=== PATIENT | male | born 1945 | race Two or more races ===

== ENCOUNTER 2019-08-08 11:28 | Outpatient (CLI) | payer MEDICARE, OTHER ==
[2019-08-21] MEDS ORDERED: FERR325T23 PO (08:45)
[2019-08-21] MEDS ORDERED: CALC500T63 PO (08:45)
[2019-08-21] MEDS ORDERED: SEVE0.8P GT (08:45)
[2019-08-21] MEDS ORDERED: CLOT15CR35 TP (08:45)
[2019-08-21] MEDS ORDERED: DAPT500V2 IV (08:51)
== END 2019-08-08 23:59 | disposition home health service (06) ==
LOC: WOU 11:28
PROVIDERS: ATTEND Podiatrist Foot & Ankle Surgery
DX: E11.621 Type 2 diabetes mellitus with foot ulcer (principal); L97.412 Non-pressure chronic ulcer of right heel and midfoot with fat layer exposed; L97.526 Non-pressure chronic ulcer of other part of left foot with bone involvement without evidence of necrosis; E11.69 Type 2 diabetes mellitus with other specified complication; M86.672 Other chronic osteomyelitis, left ankle and foot; Z79.84 Long term (current) use of oral hypoglycemic drugs; Z89.432 Acquired absence of left foot; Z87.891 Personal history of nicotine dependence
CPT/HCPCS: 11042; 11044; 82962; 87070; A6407

== ENCOUNTER 2019-08-15 08:50 | Outpatient (CLI) | payer MEDICARE, OTHER | END 2019-08-15 23:59 | disposition home health service (06) | LOC: WOU 08:50 | PROVIDERS: ATTEND Podiatrist Foot & Ankle Surgery | DX: E11.621 Type 2 diabetes mellitus with foot ulcer (principal); L97.526 Non-pressure chronic ulcer of other part of left foot with bone involvement without evidence of necrosis; L97.412 Non-pressure chronic ulcer of right heel and midfoot with fat layer exposed; E11.69 Type 2 diabetes mellitus with other specified complication; M86.672 Other chronic osteomyelitis, left ankle and foot; Z79.84 Long term (current) use of oral hypoglycemic drugs; B95.62 Methicillin resistant Staphylococcus aureus infection as the cause of diseases classified elsewhere; Z89.432 Acquired absence of left foot; Z89.431 Acquired absence of right foot | CPT/HCPCS: 11042; 28005; 87070; 87075; 88305; 88311; A6209 ==

== ENCOUNTER 2019-08-17 17:52 | Inpatient (IN) | payer MEDICARE, OTHER ==
[~2019-08-17] VITALS: Ht 170.2 cm; Wt 65.8 kg
--- NOTE | 2019-08-17 17:55 | NUR ---
BIB DAUGHTER C/O L FOOT INFECTION FOR 2 WEEKS, TO ER BED 10, NOTED W ITH L AND R COMPLETE TOE AMPUTATION, PER PATIENT, HE WAS SENT BY DR NEFF FOR IV ANTIBIOTIC TO PREVENT INFECTION OF L FOOT. NOTED W LUE FISTULA. CHANGED TO HOSP GOWN, WARM BLANKET PROVIDED, PATIENT AAO x 4, BREATHING EVEN AND UNLABORED. DR JIMENEZ AT BEDSIDE.
--- NOTE | 2019-08-17 18:00 | NUR ---
PATIENT ON DIALYSIS EVERY Wed, LAST DIALYSIS 08/16/2019
[2019-08-17 18:23] LABS: BASOPHILS # (AUTO) 0.1 /CMM (0.0-0.2); BASOPHILS % (AUTO) 0.8 % (0.0-2.0); HEMATOCRIT 27 % (39-51); HEMOGLOBIN 8.3 g/dL (13.5-17.5); LYMPHOCYTES # (AUTO) 2.1 /CMM (0.8-4.8); LYMPHOCYTES % (AUTO) 27.5 % (20.0-44.0); MEAN CORPUSCULAR HGB CONC 31 g/dl (31.0-36.0); MEAN CORPUSCULAR VOLUME 87 fL (80-96); MONOCYTES # (AUTO) 1.1 /CMM (0.1-1.30); MONOCYTES % (AUTO) 14.3 % (2.0-12.0); NEUTROPHILS # (AUTO) 4.2 /CMM (1.8-8.9); NEUTROPHILS % (AUTO) 53.4 % (43.0-81.0); PLATELET COUNT (AUTO) 297 /CMM (150-450); RED BLOOD CELL COUNT(AUTO) 3.07 MIL/uL (4.5-6.0); WHITE BLOOD COUNT (AUTO) 7.8 K/uL (4.3-11.0)
[2019-08-17] MEDS ORDERED: CEFTRIAXONE 1GM BAG (ER ONLY) 50 ML IV ONE (18:27)
[2019-08-17] MEDS ORDERED: SULFAMETH/TRIMETH 800/160 MG 1 UDTAB TABLET ONE (18:28)
[2019-08-17] MEDS ORDERED: CEFTRIAXONE 1GM BAG (ER ONLY) 1 GM/50 ML PIGGYBACK IV ONE (18:30)
[2019-08-17] MEDS ORDERED: SULFAMETH/TRIMETH 800/160 MG 1 UDTAB TABLET PO ONE (18:30)
[2019-08-17] MEDS ORDERED: IV NS 0.9% 500 ML BAG IV ONE (18:30)
[2019-08-17] MEDS ORDERED: ASPI-1169 PO (18:31)
[2019-08-17] MEDS ORDERED: LOSA25TA27 PO (18:31)
[2019-08-17] MEDS ORDERED: ATOR40TA PO (18:31)
--- NOTE | 2019-08-17 18:32 | NUR ---
SHEAR OPERATOR HELPER AT BEDSIDE
[2019-08-17 18:37] LABS: ALANINE AMINOTRANSFERASE 50 U/L (12-78); ALBUMIN 2.6 g/dL (3.4-5.0); ALKALINE PHOSPHATASE 101 U/L (46-116); ASPARTATE AMINOTRANSFERASE 49 U/L (15-37); BILIRUBIN,DIRECT 0.1 mg/dL (0.0-0.2); BILIRUBIN,TOTAL 0.3 mg/dL (0.2-1.0); CALCIUM, SERUM 8.3 mg/dL (8.5-10.1); CARBON DIOXIDE 31 mmol/L (21-32); GLUCOSE 128 mg/dL (74-106); TOTAL PROTEIN, SERUM 7.5 g/dL (6.4-8.2); UREA NITROGEN, BLOOD 73 mg/dL (7-18)
[2019-08-17] MEDS ORDERED: LINA5TAB PO (18:43)
[2019-08-17 18:54] LABS: CHLORIDE 98 mmol/L (98-107); SODIUM SERUM 135 mmol/L (136-145)
--- NOTE | 2019-08-17 19:12 | NUR ---
REPORT GIVEN TO SHAHRIAR COLBERT FOR AIXA
--- NOTE | 2019-08-17 19:29 | NUR ---
REPORT RECEIVED FROM FILEMON DIANA FOR AIXA
--- NOTE | 2019-08-17 19:36 | NUR ---
PT REASSESSED. NO MEDICAL COMPLAINTS AT THIS TIME. NO ACUTE DISTRESS NOTED. WILL CONTINUE TO MONITOR
[2019-08-17] MEDS ORDERED: Z GUARD REMEDY 2 OZ OINT TP PRN (20:00)
[2019-08-17] MEDS ORDERED: MAG HYDROX/AL HYDROX/SIMETH 30 ML UDC PO PRN (20:00)
[2019-08-17] MEDS ORDERED: ZOLPIDEM TARTRATE 5 MG TABLET PO PRN (20:00)
[2019-08-17] MEDS ORDERED: MAGNESIUM HYDROXIDE 30 ML UDC PO PRN (20:00)
[2019-08-17] MEDS ORDERED: HYDROCODONE/APAP 5/325MG 1 EACH TABLET PO PRN (20:00)
[2019-08-17] MEDS ORDERED: ACETAMINOPHEN 325 MG TABLET PO PRN (20:00)
[2019-08-17] MEDS ORDERED: CLINDAMYCIN IV RTU IN D5W 900 MG/50 ML PIGGYBACK IV SCH (20:00)
[2019-08-17] MEDS ORDERED: ONDANSETRON HCL/PF 4 MG/2 ML VIAL IVP PRN (20:00)
[2019-08-17 21:00] VITALS: BP 138/66
[2019-08-17] MEDS ORDERED: CLINDAMYCIN 900 MG in IV D5W 50 ML IV SCH (21:00)
--- NOTE | 2019-08-17 21:00 | NUR ---
REPORT GIVEN TO FILEMON POWERS
--- NOTE | 2019-08-17 21:02 | NUR ---
PT TRANSFERRED TO ROOM IN STABLE CONDITION
--- NOTE | 2019-08-17 21:05 | NUR ---
MS MOLDED GOODS EMBOSSING PRESS OPERATOR NOTES PATIENT TRANSFERRED FROM ER IN STABLE CONDITION VIA GURNEY. A/OX4. STABLE ON RA. NO S/S OF ACUTE RESPIRATORY DISTRESS; BREATHING IS EVEN AND UNLABORED. NO C/O PAIN AT THIS TIME. IV PRESENT ON RIGHT HAND, SIZE 18, INTACT & PATENT, HEP LOCKED. UPON SKIN ASSESSMENT, PATIENT HAS COMPLETE TOE AMPUTATIONS ON BOTH FEET; ULCER/CELLULITIS PRESENT ON RIGHT HEEL; PICTURES TAKEN AND PLACE IN CHART; WOUND CONSULT ORDERS IN PLACE. BELONGINGS VERIFIED WITH PATIENT; HAS ONE HUNDRED DOLLARS (ONE BILL) IN [place], ASKED PATIENT IF HE WOULD LIKE TO KEEP WALLET AND MONEY IN SAFE FOR PRECAUTION; PATIENT DECLINED AND STATED THAT HE WOULD LIKE TO KEEP WALLET BY HIS BEDSIDE; NOTED ON BELONGINGS LIST. MRSA SWAB AND MED RECON COMPLETED IN ER. ADMITTING ORDERS RECEIVED BY GLOBAL PROCESS OWNER CHARMAINE TIPTON. SAFETY MEASURES IN PLACE AND PATIENT'S NEEDS MET. WILL CONTINUE TO MONITOR.
--- NOTE | 2019-08-17 21:45 | NUR ---
MS RN NOTES SCHEDULED IVPB CLINDAMYCIN 900MG NOT STOCKED ON FLOOR; NURSING HATCHERY SUPERVISOR FAXED MED ORDER TO RETRIEVE FROM [facility]. AWAITING MEDICATION.
[2019-08-17 22:52] LABS: POTASSIUM 6.6 mmol/L (3.5-5.1)
[2019-08-17] MEDS ORDERED: CLINDAMYCIN 900 MG/6 ML VIAL ONE (22:56)
--- NOTE | 2019-08-18 00:10 | NUR ---
MS RN CRITICAL VALUE NOTES RECEIVED CRITICAL VALUE FROM LAB; POTASSIUM 6.5. NOTIFIED POWER HAMMER OPERATOR CHARMAINE TIPTON, VIA [employer]. PER CHARMAINE, NO NEW ORDERS; PATIENT TO RECEIVE DIALYSIS LATER TODAY TO RESOLVE POTASSIUM LEVELS.
[2019-08-18] MEDS: CALCIUM CARBONATE 500 MG TAB.CHEW PO SCH ×3 (00:11→21:12)
[2019-08-18 06:33] LABS: BASOPHILS % (AUTO) 0.4 % (0.0-2.0); EOSINOPHILS % (AUTO) 3.5 % (0.0-6.0); HEMATOCRIT 24 % (39-51); HEMOGLOBIN 7.8 g/dL (13.5-17.5); LYMPHOCYTES # (AUTO) 2.3 /CMM (0.8-4.8); LYMPHOCYTES % (AUTO) 30.4 % (20.0-44.0); MEAN CORPUSCULAR HGB CONC 32 g/dl (31.0-36.0); MEAN CORPUSCULAR VOLUME 85 fL (80-96); MONOCYTES # (AUTO) 1.1 /CMM (0.1-1.30); MONOCYTES % (AUTO) 14.2 % (2.0-12.0); NEUTROPHILS # (AUTO) 3.8 /CMM (1.8-8.9); NEUTROPHILS % (AUTO) 51.5 % (43.0-81.0); PLATELET COUNT (AUTO) 304 /CMM (150-450); RED BLOOD CELL COUNT(AUTO) 2.85 MIL/uL (4.5-6.0); WHITE BLOOD COUNT (AUTO) 7.4 K/uL (4.3-11.0)
--- NOTE | 2019-08-18 07:04 | NUR ---
MS RN CLOSING NOTES PATIENT SLEEPING IN BED, EASY TO AWAKEN. A/OX4. STABLE ON RA. NO S/S OF ACUTE RESPIRATORY DISTRESS; BREATHING IS EVEN AND UNLABORED; NO S/S OF PAIN NOTED. IV PRESENT ON RIGHT HAND, SIZE 18, INTACT & PATENT, HEP LOCKED. SAFETY MEASURES IN PLACE AND PATIENT'S NEEDS MET. BED LOCKED, ALARM ON, SIDE RAILS X2, CALL LIGHT WITHIN REACH. WILL ENDORSE TO DAY SHIFT NURSE PLAN OF CARE.
[2019-08-18 07:13] LABS: CHOLESTEROL 130 mg/dL (<200); HDL CHOLESTEROL 41 mg/dL (40-60); LDL 77 mg/dL (0-99); TRIGLYCERIDES 102 mg/dL (30-150)
[2019-08-18 07:14] LABS: CALCIUM, SERUM 7.9 mg/dL (8.5-10.1); CARBON DIOXIDE 26 mmol/L (21-32); CHLORIDE 96 mmol/L (98-107); GLUCOSE 82 mg/dL (74-106); MAGNESIUM 2.7 mg/dL (1.8-2.4); PHOSPHORUS 6.1 mg/dL (2.5-4.9); SODIUM SERUM 133 mmol/L (136-145)
[2019-08-18 07:21] LABS: POTASSIUM 6.5 mmol/L (3.5-5.1); UREA NITROGEN, BLOOD 82 mg/dL (7-18)
[2019-08-18 07:22] LABS: CREATININE 7.8 mg/dL (0.6-1.3)
--- NOTE | 2019-08-18 07:30 | NUR ---
MS RN NOTES RECEIVED PATIENT SLEEPING IN BED COMFORTABLY IN MODERATE HIGH BACK REST, EASY TO AWAKEN. A/OX4. STABLE ON RA. NO S/S OF ACUTE DISTRESS NOTED AT THIS TIME, IV ACCESS ON RIGHT HAND, #18, INTACT & PATENT, HEP LOCKED. SAFETY MEASURES IN PLACE. BED LOCKED IN LOWEST POSITION, ALARM ON, SIDE RAILS X2, CALL LIGHT WITHIN REACH. WILL CONTINUE TO MONITOR.
[2019-08-18] MEDS: CLINDAMYCIN 900 MG in IV D5W 50 ML IV SCH ×2 (07:33→13:25)
[2019-08-18 08:00] VITALS: BP 139/74
[2019-08-18] MEDS: ASPIRIN 81 MG TAB.CHEW PO SCH (08:38)
[2019-08-18] MEDS: LINAGLIPTIN 5 MG TABLET PO SCH (08:38)
[2019-08-18] MEDS: LOSARTAN POTASSIUM 25 MG TABLET PO SCH (08:39)
[2019-08-18] MEDS: CLOTRIMAZOLE 1% 15 GM TUBE TP SCH ×2 (09:58→17:18)
[2019-08-18] MEDS: PANTOPRAZOLE 40 MG TABLET.DR PO SCH (10:00)
--- NOTE | 2019-08-18 10:00 | NUR ---
RN NOTES DIALYSIS NURSE ON UNIT, NO SIGNS OF DISTRESS NOTED AT THIS TIME. CONSENT FOR HD SIGNED. WILL CONTINUE TO MONITOR.
--- NOTE | 2019-08-18 10:12 | NUR ---
WOUND CARE CONSULT WOUND CARE RECEIVED CONSULT FOR RIGHT HEEL ULCER/CELLULITIS. WOUND CARE WILL DEFER CONSULT AND TREATMENT PLANS TO DPM DR BRODY WHO FOLLOWS THIS PATIENT IN THE OUT PATIENT WOUND CLINIC. DR BRODY HAS BEEN NOTIFIED OF PATIENT'S ADMISSION. PATIENT WITH TRACIE AT 20, WOUND CARE WILL SEE PRN.
--- NOTE | 2019-08-18 13:00 | NUR ---
RN NOTES DIALYSIS WAS DONE, V/S WNL, NO SIGNS OF DISTRESS NOTED. OUTPUT OF 2L, WILL CONTINUE TO MONITOR.
[2019-08-18] MEDS: SEVELAMER CARBONATE 0.8 GM POWD.PACK GT SCH ×2 (13:25→17:17)
[2019-08-18 16:00] VITALS: BP 137/66
[2019-08-18] MEDS: ATORVASTATIN 40 MG TABLET PO SCH (17:17)
--- NOTE | 2019-08-18 18:51 | NUR ---
MS RN NOTES PATIENT SLEEPING IN BED COMFORTABLY IN MODERATE HIGH BACK REST, EASY TO AWAKEN. A/OX4. STABLE ON RA. NO S/S OF ACUTE DISTRESS NOTED THROUGHOUT THE SHIFT, S/P HD WITH OUTPUT OF 2L, IV ACCESS ON RIGHT HAND, #18, INTACT & PATENT, HEP LOCKED. SAFETY MEASURES IN PLACE. BED LOCKED IN LOWEST POSITION, ALARM ON, SIDE RAILS X2, CALL LIGHT WITHIN REACH. WILL ENDORSE TO UNDERCOVER COP NURSE FOR AIXA.
--- NOTE | 2019-08-18 19:10 | NUR ---
marine engineering consultant opening notes Received Pt from morning nurse. Pt is alert and orientedX4. Pt speaks Nigerien and able to make needs known. Respiration is normal in room air. No SOB. No S/S of distress noted. IV sites R hand #18 is clean, intact, patent and SL. Tele monitor showed SR Hr at 88 bpm. Safety precautions is maintained. Bed at low position, brakes locked, side rails upX2 and call light is within reach. Will continue to monitor.
[2019-08-18 20:00] VITALS: BP 135/67
[2019-08-18 20:17] VITALS: BP 135/67
[2019-08-18] MEDS: LINEZOLID 600 MG TABLET PO SCH (21:17)
[2019-08-19] VITALS (7 sets, daily range): BP systolic 107–153; BP diastolic 56–70
[2019-08-19 06:38] LABS: BASOPHILS % (AUTO) 0.7 % (0.0-2.0); EOSINOPHILS % (AUTO) 4.1 % (0.0-6.0); HEMATOCRIT 25 % (39-51); LYMPHOCYTES # (AUTO) 1.8 /CMM (0.8-4.8); LYMPHOCYTES % (AUTO) 27.6 % (20.0-44.0); MEAN CORPUSCULAR HGB CONC 32 g/dl (31.0-36.0); MEAN CORPUSCULAR VOLUME 85 fL (80-96); MONOCYTES % (AUTO) 15.4 % (2.0-12.0); NEUTROPHILS # (AUTO) 3.5 /CMM (1.8-8.9); NEUTROPHILS % (AUTO) 52.2 % (43.0-81.0); PLATELET COUNT (AUTO) 277 /CMM (150-450); RED BLOOD CELL COUNT(AUTO) 2.92 MIL/uL (4.5-6.0); WHITE BLOOD COUNT (AUTO) 6.7 K/uL (4.3-11.0)
--- NOTE | 2019-08-19 06:56 | NUR ---
machine sand mixer closing notes Pt is resting in bed comfortably. Pt is alert and orientedX4. Pt speaks Kiswahili and able to make needs known. Respiration is normal in room air. No SOB. No S/S of distress noted. IV sites R hand #18 is clean, intact, patent and SL. Tele monitor showed SR Hr at 80 bpm. Routine meds were given as ordered. VS is stable. Kept Pt clean, dry and comfortable. All needs met and attended. Safety precautions is maintained. Bed at low position, brakes locked, side rails upX2 and call light is within reach. Will endorse to morning nurse for AIXA.
[2019-08-19 06:58] LABS: CREATINE KINASE, TOTAL 40 U/L (39-308); FERRITIN 156 ng/mL (8-388); THYROID STIMULATING HORMONE 2.057 uIU/mL (0.358-3.74)
[2019-08-19 07:06] LABS: IRON, SERUM 17 ug/dl (50-175); TOTAL IRON BINDING CAPACITY 164 ug/dl (250-450)
--- NOTE | 2019-08-19 07:47 | NUR ---
RN NOTES PATIENT IN BED RESTING. NO SOB OR ACUTE DISTRESS NOTED. PATIENT ALERT, ORIENTED X4. BED IN LOW LOCKED POSITION. CALL LIGHT WITHIN REACH. WILL CONTINUE TO MONITOR.
[2019-08-19] MEDS: SEVELAMER CARBONATE 0.8 GM POWD.PACK GT SCH ×3 (08:39→17:23)
[2019-08-19] MEDS: LINEZOLID 600 MG TABLET PO SCH ×2 (08:39→20:11)
[2019-08-19] MEDS: PANTOPRAZOLE 40 MG TABLET.DR PO SCH (08:39)
[2019-08-19] MEDS: CALCIUM CARBONATE 500 MG TAB.CHEW PO SCH ×2 (08:39→20:11)
[2019-08-19] MEDS: LINAGLIPTIN 5 MG TABLET PO SCH (08:39)
[2019-08-19] MEDS: ASPIRIN 81 MG TAB.CHEW PO SCH (08:39)
[2019-08-19] MEDS: LOSARTAN POTASSIUM 25 MG TABLET PO SCH (08:46)
[2019-08-19] MEDS: CLOTRIMAZOLE 1% 15 GM TUBE TP SCH ×2 (08:49→17:20)
--- NOTE | 2019-08-19 09:00 | NUR ---
RN NOTES RECIVED CALL FROM LAB REPORTING POTASSIUM OF 6.6, DR. CHEPE Medina NOTIFIED STATES WILL PLACE ORDERS FOR KAYXALATE.
[2019-08-19 09:43] LABS: ALANINE AMINOTRANSFERASE 28 U/L (12-78); ALBUMIN 2.4 g/dL (3.4-5.0); ALKALINE PHOSPHATASE 73 U/L (46-116); ASPARTATE AMINOTRANSFERASE 23 U/L (15-37); BILIRUBIN,TOTAL 0.3 mg/dL (0.2-1.0); CALCIUM, SERUM 8.4 mg/dL (8.5-10.1); CARBON DIOXIDE 31 mmol/L (21-32); CHLORIDE 95 mmol/L (98-107); CREATININE 7.2 mg/dL (0.6-1.3); GLUCOSE 144 mg/dL (74-106); MAGNESIUM 2.5 mg/dL (1.8-2.4); PHOSPHORUS 6.7 mg/dL (2.5-4.9); SODIUM SERUM 133 mmol/L (136-145); TOTAL PROTEIN, SERUM 7.2 g/dL (6.4-8.2); UREA NITROGEN, BLOOD 65 mg/dL (7-18)
[2019-08-19 09:46] LABS: POTASSIUM 6.6 mmol/L (3.5-5.1)
[2019-08-19] MEDS ORDERED: Calcium Gluconate 1GM/10ML 4.65 MEQ in IV NS 0.9% 100 ML IV ONE (11:00)
[2019-08-19] MEDS: SODIUM POLYSTYRENE SULFONATE 15 G/60 ML BOTTLE PO ONE ×2 (11:35→13:19)
--- NOTE | 2019-08-19 12:00 | NUR ---
MS RN NOTES PATIENT REFUSED SODIUM POLYTYRENT DESPITE EXPLANATION OF ITS BENEFITS AND RISKS OF NOT TAKING MEDICATION. WILL TRY TO OFFER MEDICATION LATER.
--- NOTE | 2019-08-19 13:19 | NUR ---
RN NOTES PATIENT AGREED TO TAKE KAYEXALATE.
[2019-08-19] MEDS: SOD FERRIC GLUC 125 MG in IV NS 0.9% 100 ML IV SCH (16:49)
[2019-08-19] MEDS: ATORVASTATIN 40 MG TABLET PO SCH (17:23)
--- NOTE | 2019-08-19 18:35 | NUR ---
MS RN NOTES PATIENT IN BED RESTING NO SOB OR ACUTE DISTRESS NOTED. ALL DUE MEDICATIONS ADMINISTERED. ALL NEEDS MET. PATIENT TOLERATED HD WITH 1500 OUTPUT. NO ACUTE CHANGES NOTED. WILL CONTINUE TO MONITOR.
--- NOTE | 2019-08-19 19:25 | NUR ---
MS RN NOTES PATIENT RECEIVED IN BED RESTING COMFORTABLY, ALERT AND ORIENTED X 4, MAINLY [place] SPEAKING. PATIENT ON ROOM AIR, WITH NO SIGNS OF RESPIRATORY DISTRESS, NO SOB NOTED AND WITH EVEN NON-LABORED BREATHING. IV ACCESS INTACT AND PATENT ON RIGHT HAND, 18 GAUGE SALINE LOCK. PATIENT SKIN WARM AND DRY TO TOUCH. DENIES ANY PAIN OR DISCOMFORT AT THIS TIME. SAFETY PRECAUTIONS IN PLACE WITH BED IN THE LOWEST POSITION, BED LOCKED, BILATERAL SIDE RAILS UP, AND CALL LIGHT WITHIN EASY REACH OF THE PATIENT. WILL CONTINUE TO MONITOR PATIENT.
[2019-08-20 06:24] LABS: BASOPHILS # (AUTO) 0.1 /CMM (0.0-0.2); EOSINOPHILS % (AUTO) 4.2 % (0.0-6.0); HEMATOCRIT 23 % (39-51); HEMOGLOBIN 7.4 g/dL (13.5-17.5); LYMPHOCYTES # (AUTO) 1.7 /CMM (0.8-4.8); LYMPHOCYTES % (AUTO) 30.6 % (20.0-44.0); MEAN CORPUSCULAR HGB CONC 32 g/dl (31.0-36.0); MEAN CORPUSCULAR VOLUME 85 fL (80-96); MONOCYTES # (AUTO) 0.9 /CMM (0.1-1.30); MONOCYTES % (AUTO) 16.3 % (2.0-12.0); NEUTROPHILS # (AUTO) 2.7 /CMM (1.8-8.9); NEUTROPHILS % (AUTO) 47.9 % (43.0-81.0); PLATELET COUNT (AUTO) 223 /CMM (150-450); RED BLOOD CELL COUNT(AUTO) 2.71 MIL/uL (4.5-6.0); WHITE BLOOD COUNT (AUTO) 5.6 K/uL (4.3-11.0)
[2019-08-20 06:44] LABS: ALANINE AMINOTRANSFERASE 21 U/L (12-78); ALBUMIN 2.3 g/dL (3.4-5.0); ALKALINE PHOSPHATASE 70 U/L (46-116); ASPARTATE AMINOTRANSFERASE 22 U/L (15-37); BILIRUBIN,TOTAL 0.2 mg/dL (0.2-1.0); CARBON DIOXIDE 32 mmol/L (21-32); CHLORIDE 98 mmol/L (98-107); GLUCOSE 87 mg/dL (74-106); MAGNESIUM 2.4 mg/dL (1.8-2.4); PHOSPHORUS 7.6 mg/dL (2.5-4.9); POTASSIUM 6.1 mmol/L (3.5-5.1); SODIUM SERUM 136 mmol/L (136-145); TOTAL PROTEIN, SERUM 6.7 g/dL (6.4-8.2); UREA NITROGEN, BLOOD 52 mg/dL (7-18)
--- NOTE | 2019-08-20 06:47 | NUR ---
MS RN NOTES PATIENT IN BED RESTING COMFORTABLY. NO SIGNS OF RESPIRATORY DISTRESS, WITH EVEN NON-LABORED BREATHING AND NO SOB NOTED. IV ACCESS INTACT AND PATENT ON RIGHT HAND 18 GAUGE. MET ALL OF PATIENT'S NEEDS. PROVIDED COMFORT MEASURES TO PATIENT, NO PAIN OR DISCOMFORT AT THIS TIME. SAFETY PRECAUTIONS IMPLEMENTED WITH BED IN THE LOWEST POSITION, BED LOCKED, BILATERAL SIDE RAILS UP AND CALL LIGHT WITHIN EASY REACH OF PATIENT. WILL ENDORSE PLAN OF CARE TO UPCOMING DAYSHIFT NURSE.
[2019-08-20 08:00] VITALS: BP 143/69
--- NOTE | 2019-08-20 08:00 | NUR ---
RN NOTES RECEIVED PATIENT IN THE BED , A/O X3, SOUTH KOREAN SPEAKER, PATIENT HAS NO ACUTE RESPIRATORY DISTRESS, REFUSED PAIN, PATIENT USING CANE FOR AMBULATION, SAFETY PRECAUTION MAINTAINED ALL THE G[place]ALO E. PATIENT HAS AMPUTATED BILATERAL FOOTS, DRESSING CHANGED. ADMINISTERED SCHEDULED MEDICATION.V/S STABLE. IV ACCESS ON RIGHT HAND INTACT.
[2019-08-20] MEDS: CALCIUM CARBONATE 500 MG TAB.CHEW PO SCH ×2 (08:49→20:32)
[2019-08-20] MEDS: LINEZOLID 600 MG TABLET PO SCH ×2 (08:49→20:32)
[2019-08-20] MEDS: LOSARTAN POTASSIUM 25 MG TABLET PO SCH (08:49)
[2019-08-20] MEDS: LINAGLIPTIN 5 MG TABLET PO SCH (08:50)
[2019-08-20] MEDS: SEVELAMER CARBONATE 0.8 GM POWD.PACK GT SCH ×3 (08:50→17:48)
[2019-08-20] MEDS: ASPIRIN 81 MG TAB.CHEW PO SCH (08:50)
[2019-08-20] MEDS: PANTOPRAZOLE 40 MG TABLET.DR PO SCH (08:50)
[2019-08-20] MEDS: CLOTRIMAZOLE 1% 15 GM TUBE TP SCH ×2 (08:51→16:48)
--- NOTE | 2019-08-20 10:00 | NUR ---
N NOTES SEEN PATIENT BY HOSPITALIST SHOAIB DIRECTOR OF PARTNER MARKETING , PATIENT WILL CONTINUED HOSPITALIZATION, TAKE MEDICATION PRESCRIBED.
--- NOTE | 2019-08-20 14:04 | NUR ---
RN NOTES PER FRUIT SHIPPER Dr PALM PATIENT WILL HAVING A HEMODIALYSIS TODAY, BECAUSE OF LAB RESULT.
[2019-08-20] MEDS: SOD FERRIC GLUC 125 MG in IV NS 0.9% 100 ML IV SCH (14:15)
--- NOTE | 2019-08-20 14:39 | NUR ---
RN NOTES INFUSING FERRLECIT 100ML/HR AT THIS TIME ON RIGHT HAND INTACT.
[2019-08-20 16:00] VITALS: BP 154/75
--- NOTE | 2019-08-20 16:32 | NUR ---
RN NOTES PATIENT GETTING HEMODIALYSIS AT THIS TIME VIA CITY ENGINEER. CONTINUED MONITORING, V/S TAKEN BP- 154/75,P-81 . PATIENT REFUSED PAIN, NO ACUTE RESPIRATORY DISTRESS.
[2019-08-20] MEDS: ATORVASTATIN 40 MG TABLET PO SCH (17:49)
--- NOTE | 2019-08-20 18:20 | NUR ---
RN NOTES FINISHED HEMODIALYSIS AT THIS TIME OUTPUT WAS 1000ML, V/S TAKEN BP 164/74, P76, T-98, R-20, 02-96 ROOM AIR. PATIENT EATING DINNER, ADMINISTERED SCHEDULED MEDICATION, ALSO PER Md ORTEGA GET TO ORDER BMP AFTER 30 MINUTES HEMODIALYSIS. ORDER TAKEN AND CARRIED OUT. CALL LIGHT WITHIN TO REACH. ENDORSED ONCOMING NURSE FOLLOW PLAN OF CARE.
--- NOTE | 2019-08-20 19:30 | NUR ---
MS RN NOTES PATIENT RECEIVED IN BED RESTING, ALERT AND ORIENTED X 4. ON ROOM AIR, WITH NO SIGNS OF RESPIRATORY DISTRESS, WITH EVEN NON-LABORED BREATHING, AND NO SOB NOTED. PATIENT IV ACCESS INTACT AND PATENT. SKIN WARM AND DRY TO TOUCH. DENIES PAIN AND DISCOMFORT AT THIS TIME. SAFETY PRECAUTIONS IN PLACE WITH BED LOCKED, BED IN THE LOWEST POSITION, BILATERAL SIDE RAILS UP, AND CALL LIGHT WITHIN EASY REACH OF THE PATIENT. WILL CONTINUE TO MONITOR PATIENT.
[2019-08-20 20:00] VITALS: BP 150/68
[2019-08-20 20:46] LABS: CALCIUM, SERUM 7.9 mg/dL (8.5-10.1); CARBON DIOXIDE 34 mmol/L (21-32); CHLORIDE 99 mmol/L (98-107); CREATININE 4.6 mg/dL (0.6-1.3); GLUCOSE 113 mg/dL (74-106); SODIUM SERUM 137 mmol/L (136-145); UREA NITROGEN, BLOOD 35 mg/dL (7-18)
[2019-08-21 06:36] LABS: BASOPHILS % (AUTO) 0.9 % (0.0-2.0); EOSINOPHILS % (AUTO) 5.1 % (0.0-6.0); HEMATOCRIT 24 % (39-51); HEMOGLOBIN 7.6 g/dL (13.5-17.5); LYMPHOCYTES # (AUTO) 1.9 /CMM (0.8-4.8); LYMPHOCYTES % (AUTO) 38.9 % (20.0-44.0); MEAN CORPUSCULAR HGB CONC 32 g/dl (31.0-36.0); MEAN CORPUSCULAR VOLUME 86 fL (80-96); NEUTROPHILS # (AUTO) 1.7 /CMM (1.8-8.9); NEUTROPHILS % (AUTO) 35.1 % (43.0-81.0); PLATELET COUNT (AUTO) 186 /CMM (150-450); RED BLOOD CELL COUNT(AUTO) 2.78 MIL/uL (4.5-6.0); WHITE BLOOD COUNT (AUTO) 4.8 K/uL (4.3-11.0)
--- NOTE | 2019-08-21 06:38 | NUR ---
MS RN NOTES PATIENT IN BED SLEEPING EASILY AWAKEN BY NAME. NO SIGNS OF RESPIRATORY DISTRESS, WITH EVEN NON-LABORED BREATHING AND NO SOB NOTED. IV ACCESS INTACT AND PATENT ON RIGHT HAND 18 GAUGE. MET ALL OF PATIENT'S NEEDS. PROVIDED COMFORT MEASURES TO PATIENT, NO PAIN OR DISCOMFORT AT THIS TIME. SAFETY PRECAUTIONS IN PLACE WITH BED IN THE LOWEST POSITION, BED LOCKED, BILATERAL SIDE RAILS UP AND CALL LIGHT WITHIN EASY REACH OF PATIENT. WILL ENDORSE PLAN OF CARE TO UPCOMING DAYSHIFT NURSE.
[2019-08-21 06:56] LABS: CALCIUM, SERUM 7.7 mg/dL (8.5-10.1); CARBON DIOXIDE 33 mmol/L (21-32); CHLORIDE 100 mmol/L (98-107); CREATININE 5.6 mg/dL (0.6-1.3); GLUCOSE 84 mg/dL (74-106); MAGNESIUM 2.4 mg/dL (1.8-2.4); PHOSPHORUS 6.5 mg/dL (2.5-4.9); POTASSIUM 5.4 mmol/L (3.5-5.1); SODIUM SERUM 137 mmol/L (136-145); UREA NITROGEN, BLOOD 40 mg/dL (7-18)
[2019-08-21 08:00] VITALS: BP 140/72
--- NOTE | 2019-08-21 08:00 | NUR ---
RN NOTES RECEIVED PATIENT IN THE BED A/O X3, WAS COMPLAINING OF TO MUCH SALIVA IN THE MOUTH CHRONIC PROBLEM WHICH IS CAUSE NAUSEA. PATENT REFUSED PAIN, V/S STABLE. ADMINISTERED SCHEDULED MEDICATION, PATENT USING CANE FOR SAFETY GOING BATHROOM. TOLERATED BREAKFAST WELL. HD SHUNT ON LEFT UA INTACT, IV ACCESS ON RIGHT HAND INTACT. SAFETY PRECAUTION MAINTAINED ALL THE TIME.CALL LIGHT WITHIN TO REACH. CONTINUED MONITORING.
[2019-08-21] MEDS ORDERED: FERR325T23 PO (08:45)
[2019-08-21] MEDS ORDERED: CLOT15CR35 TP (08:45)
[2019-08-21] MEDS ORDERED: CALC500T63 PO (08:45)
[2019-08-21] MEDS ORDERED: SEVE0.8P GT (08:45)
[2019-08-21] MEDS ORDERED: DAPT500V2 IV (08:51)
[2019-08-21] MEDS: LINEZOLID 600 MG TABLET PO SCH ×2 (08:58→20:59)
[2019-08-21] MEDS: PANTOPRAZOLE 40 MG TABLET.DR PO SCH (08:58)
[2019-08-21] MEDS: SEVELAMER CARBONATE 0.8 GM POWD.PACK GT SCH ×3 (08:59→17:29)
[2019-08-21] MEDS: LINAGLIPTIN 5 MG TABLET PO SCH (08:59)
[2019-08-21] MEDS: CLOTRIMAZOLE 1% 15 GM TUBE TP SCH ×2 (08:59→17:29)
[2019-08-21] MEDS: LOSARTAN POTASSIUM 25 MG TABLET PO SCH (08:59)
[2019-08-21] MEDS: CALCIUM CARBONATE 500 MG TAB.CHEW PO SCH ×2 (08:59→20:59)
[2019-08-21] MEDS: ASPIRIN 81 MG TAB.CHEW PO SCH (08:59)
[2019-08-21] MEDS: SOD FERRIC GLUC 125 MG in IV NS 0.9% 100 ML IV SCH (13:57)
[2019-08-21 16:00] VITALS: BP 142/73
--- NOTE | 2019-08-21 16:07 | NUR ---
RN NOTES PATIENT WILL NOT DISCHARGE TODAY, PER BRASS SORTER HOLD PIC LINE INSERTION, AND CONSULTATION VASCULAR MD. CONTINUED MONITORING.
--- NOTE | 2019-08-21 16:48 | NUR ---
RN NOTES STARTED HEMODIALYSIS AT THIS TIME, PER SENIOR BUSINESS ANALYST. CONTINUED MONITORING. V/S TAKEN BP-153/85,P-82.
[2019-08-21] MEDS: ATORVASTATIN 40 MG TABLET PO SCH (17:29)
--- NOTE | 2019-08-21 17:30 | NUR ---
RN NOTES SEEN PATIENT VIA VASCULAR SURGEON KEZIA. PER MD PATIENT'S SHUNT FINE TO CONTINUE DIALYSIS.
--- NOTE | 2019-08-21 18:58 | NUR ---
RN NOTES FINISHED HEMODIALYSIS AT THIS TIME, OUTPUT WAS 2000ML. PATIENT NAUSEATED, AND VOMIT X1, ADMINISTERED ZOFRAN 4 MG/ML IV PUSH ENDORSED ONCOMING NURSE FOLLOW PLAN OF CARE.
--- NOTE | 2019-08-21 19:25 | NUR ---
MS RN OPENING NOTES: RECEIVED PT ON ROOM AIR AND IS TOLERATING WELL. PT IS A/OX4. NO SOB NOTED. NO S/S OF DISTRESS. PT IS MAINLY SWEDISH SPEAKING ONLY. PT CAN UNDERSTAND SOME CYPRIOT. PT HAS SHARA SHUNT AND IS INTACT. DRESSING CLEAN AND DRY. PT HAS IV ON R HAND #18G AND IS PATENT AND INTACT. CURRENTLY H/L. BED KEPT IN LOW, LOCKED POSITION, AND SIDE RAILS X 3 UP. CALL LIGHT WITHIN REACH. BED ALARM ACTIVATED. WILL CONTINUE TO MONITOR PT.
[2019-08-21 20:00] VITALS: BP 144/58
--- NOTE | 2019-08-22 06:54 | NUR ---
MS RN CLOSING NOTES: ALL NEEDS WERE ATTENDED AND ANTICIPATED FOR. PT AWAKE AND LISTENING TO MUSIC ON HIS PHONE AT THIS TIME. ON ROOM AIR AND SATURATING WELL. NO SOB. NOTED. NO S/S OF DISTRESS NOTED. WOUND DRESSING KEPT CLEAN AND DRY. PT HAS SHARA SHUNT AND REMAINS INTACT AND DRESSING CLEAN AND DRY. PT HAS R HAND #18G AND IS PATENT AND INTACT. CURRENTLY H/L. BED KEPT IN LOW, LOCKED POSITION, AND SIDE RAILS X 3UP. ENDORSED TO FILEMON MCHUGH, FOR AIXA.
[2019-08-22 07:06] LABS: *SPE A/G RATIO 0.7 (0.7-1.7); *SPE ALBUMIN 2.5 g/dL (2.9-4.4); *SPE ALPHA-1-GLOBULIN 0.3 g/dL (0.0-0.4); *SPE ALPHA-2-GLOBULIN 0.9 g/dL (0.4-1.0); *SPE BETA GLOBULIN 0.8 g/dL (0.7-1.3); *SPE GLOBULIN, TOTAL 3.4 g/dL (2.2-3.9); *SPE M-SPIKE 0.1 g/dL (Not Observed); *SPEGAMMA GLOBULIN 1.5 g/dL (0.4-1.8)
--- NOTE | 2019-08-22 07:30 | NUR ---
MS/RN Opening note Patient received from mine shifter. A/O X4, vital signs stable, denies any pain or discomfort at this time. Heplock flushing well with normal saline, no signs of infiltration seen. For possible discharge to home later today.
[2019-08-22 08:00] VITALS: BP 156/77
[2019-08-22] MEDS: LINAGLIPTIN 5 MG TABLET PO SCH (08:36)
[2019-08-22] MEDS: PANTOPRAZOLE 40 MG TABLET.DR PO SCH (08:36)
[2019-08-22] MEDS: LINEZOLID 600 MG TABLET PO SCH ×2 (08:36→22:10)
[2019-08-22] MEDS: SEVELAMER CARBONATE 0.8 GM POWD.PACK GT SCH ×3 (08:36→17:08)
[2019-08-22] MEDS: ASPIRIN 81 MG TAB.CHEW PO SCH (08:36)
[2019-08-22] MEDS: CALCIUM CARBONATE 500 MG TAB.CHEW PO SCH ×2 (08:36→22:10)
[2019-08-22] MEDS: CLOTRIMAZOLE 1% 15 GM TUBE TP SCH ×2 (08:37→17:03)
[2019-08-22] MEDS: LOSARTAN POTASSIUM 25 MG TABLET PO SCH (08:37)
--- NOTE | 2019-08-22 08:45 | NUR ---
MS/RN Medications Morning medications administered as ordered.
--- NOTE | 2019-08-22 09:00 | NUR ---
MS/electronic warfare specialist update Family updated as to plan of care for the day.
--- NOTE | 2019-08-22 12:19 | NUR ---
MS/RN S/B Dr Gupta Seen by MD - await fistulagram by Dr Rudolph on , continue with current plan of care.
[2019-08-22] MEDS ORDERED: DAPT500V2 IV (13:28)
[2019-08-22] MEDS: SOD FERRIC GLUC 125 MG in IV NS 0.9% 100 ML IV SCH (14:37)
--- NOTE | 2019-08-22 15:54 | NUR ---
MS/RN Nurse change Endorsement given to Yaquelin.
[2019-08-22 16:00] VITALS: BP_SYST 145; BP_DIAS 60; BP_DIAS 66
--- NOTE | 2019-08-22 16:00 | NUR ---
MS RN NOTES REPORT RECEIVED FROM ADAN.PT IS ALERT AND ORIENTED X4. ESTONIAN SPEAKING. NO S/S DISCOMFORT
[2019-08-22] MEDS: ATORVASTATIN 40 MG TABLET PO SCH (17:08)
--- NOTE | 2019-08-22 18:58 | NUR ---
MED SURGE RN CLOSING NOTES RECEIVED PT IN BED. ALERT AND ORIENTED X4. PT ON ROOM AIR. VS WNL. NO PAIN. BED IN LOWEST POSITION. CALL LIGHT WITHIN REACH. SIDE RAILS ARE X2. PT IS ENDORSED TO NIGHTSHIFT FOR AXIA.
--- NOTE | 2019-08-22 19:35 | NUR ---
RN OPENING NOTES RECEIVED REPORT FROM DAYSHIFT RN. FOUND Pt AWAKE, RESTING IN BED, WATCHING TV. NO S/S OF ACUTE DISTRESS OR SOB NOTED. NO C/O PAIN OR DISCOMFORT AT THIS TIME. Pt IS A/OX4, VERBAL, ABLE TO MAKE NEEDS KNOWN, SURINAMESE SPEAKING BUT UNDERSTANDS [place]. IV ACCESS ON R HAND #18G, SL. SHARA FISTULA. PER REPORT Pt WAS S/B DR ACOSTA, PER REPORT Pt IS AWAITING A FISTULOGRAM WITH DR MAST THAT HAS NOT YET BEEN SCHEDULED (BUT POSSIBLY WEDNESDAY IF Pt IS NOT D/C'd). SAFETY MEASURES IN PLACE. BED LOW, LOCKED, HOB ELEVATED, SIDE RAILS UP, CALL LIGHT AND BEDSIDE TABLE WITHIN REACH. WILL CONTINUE TO MONITOR AND ASSESS Pt's CONDITION AND SAFETY THROUGHOUT THE NIGHT.
[2019-08-22 20:00] VITALS: BP 144/61
[2019-08-22 21:00] VITALS: BP 144/61
--- NOTE | 2019-08-23 06:45 | NUR ---
RN NOTES Pt REFUSED AM LABS
--- NOTE | 2019-08-23 07:38 | NUR ---
RN CLOSING NOTES NO SIGNIFICANT CHANGES IN Pt's CONDITION. Pt REMAINS STABLE AT THIS TIME. NO S/S OF ACUTE DISTRESS OR SOB NOTED DURING THE NIGHT. ALL NEEDS MET AND ATTENDED TO. SAFETY MEASURES IN PLACE. ENDORSED TO DAYSHIFT RN FOR Pt's AIXA.
[2019-08-23 08:00] VITALS: BP 148/70
[2019-08-23] MEDS: SEVELAMER CARBONATE 0.8 GM POWD.PACK GT SCH ×3 (08:00→17:51)
[2019-08-23] MEDS: PANTOPRAZOLE 40 MG TABLET.DR PO SCH (08:30)
[2019-08-23] MEDS: CALCIUM CARBONATE 500 MG TAB.CHEW PO SCH ×2 (09:00→21:23)
[2019-08-23] MEDS: LOSARTAN POTASSIUM 25 MG TABLET PO SCH (09:00)
[2019-08-23] MEDS: ASPIRIN 81 MG TAB.CHEW PO SCH (09:00)
[2019-08-23] MEDS: LINEZOLID 600 MG TABLET PO SCH ×2 (09:00→21:23)
[2019-08-23] MEDS: LINAGLIPTIN 5 MG TABLET PO SCH (09:00)
[2019-08-23] MEDS: CLOTRIMAZOLE 1% 15 GM TUBE TP SCH ×2 (09:13→17:53)
[2019-08-23 12:50] LABS: CALCIUM, SERUM 8.2 mg/dL (8.5-10.1); CARBON DIOXIDE 32 mmol/L (21-32); CHLORIDE 94 mmol/L (98-107); GLUCOSE 92 mg/dL (74-106); POTASSIUM 5.3 mmol/L (3.5-5.1); SODIUM SERUM 132 mmol/L (136-145); UREA NITROGEN, BLOOD 49 mg/dL (7-18)
[2019-08-23 13:01] LABS: CREATININE 7.7 mg/dL (0.6-1.3)
--- NOTE | 2019-08-23 13:37 | NUR ---
MS RN NOTE: Moustapha Jimenez, awaiting HD.
[2019-08-23] MEDS: SOD FERRIC GLUC 125 MG in IV NS 0.9% 100 ML IV SCH (14:42)
[2019-08-23 16:00] VITALS: BP 123/87
[2019-08-23] MEDS: ATORVASTATIN 40 MG TABLET PO SCH (17:50)
--- NOTE | 2019-08-23 19:15 | NUR ---
MS RN NOTES RECEIVED PT IN BED AWAKE AND ABLE TO MAKE NEEDS KNOWN. PT A/O X3 ARABIC SPEAKING. RESPIRATIONS EVEN AND UNLABORED WITH NO S/S OF ACUTE DISTRESS OR SOB NOTED. NO COMPLAINTS OF PAIN AT THIS TIME. SAFETY MEASURES IN PLACE WITH BED IN LOWEST LOCKED POSITION WITH SIDE RAILS UP X2. CALL LIGHT WITHIN REACH. WILL CONTINUE TO MONITOR.
[2019-08-23 20:00] VITALS: BP 159/74
--- NOTE | 2019-08-23 20:17 | NUR ---
RN CLOSING NOTES PATIENT HAD NO SIGNIFICANT CHANGE IN HIS CONDITION. PATIENT IS HEMODYNAMICALLY STABLE. PATIENT DOES COMPLAIN OF PAIN. HE SHOWS NO SIGNS OF DISTRESS. BREATHING UNLABORED AND EQUAL BILATERALLY. NO SOB. ENDORSED ON ONCOMING SHIFT. Addendum: 08/23/19 at 2025 by STELLA LUBIN RN PATIENT FOR DISCHARGE. DISCHARGE INSTRUCTIONS GIVEN OVER THE PHONE TO MALGORZATA SIMONS AND TO PATIENT. PER PATIENT HE ALREADU AHAS AN APPT SCHEDULE WITH DR. KHALIDA LAWS VASCULAR IN [place] FOR HIS LEFT ARM FISTULA. S/P HD TODAY WITH OUTPUT OF 1.5L JAY WELL. LEFT ARM =FISTULA WITH DRESSING INTACT. PER PATIENT, HE PREFERS TO HAVE HIS OWN DR TO TAKE CARE OF HIS FISTULA THAN ANY OTHER DR. [facility] ALREAD[facility] AR[facility]ANG[facility] AND [facility]. AWAITING FOR PICC NURSE FOR PICC LINE INSERTION.
--- NOTE | 2019-08-23 21:30 | NUR ---
MS AUTOMOBILE DAMAGE FIELD APPRAISER NOTES PICC LINE INSERTION DONE AND INTACT. PT REFUSED PHOTOS AT THIS TIME. PT LEFT WITH FAMILY WITH ALL BELONGINGS. DISCHARGE INSTRUCTIONS DONE, PT VERBALIZED UNDERSTANDING.
== END 2019-08-23 21:30 | disposition home health service (06) | DRG 602 ==
LOC: ER 17:57 → MED 20:37 → TELE 08-18 20:51 → MED 08-19 09:39
PROVIDERS: ADMIT Family Medicine; ATTEND Registered Nurse
PROC: 5A1D70Z Performance of Urinary Filtration, Intermittent, Less than 6 Hours Per Day (ICD-10-PCS; principal; 2019-08-18)
PROC: 02HV33Z Insertion of Infusion Device into Superior Vena Cava, Percutaneous Approach (ICD-10-PCS; 2019-08-21)
DX: L03.116 Cellulitis of left lower limb (principal); N18.6 End stage renal disease; I12.0 Hypertensive chronic kidney disease with stage 5 chronic kidney disease or end stage renal disease; E44.0 Moderate protein-calorie malnutrition; M86.172 Other acute osteomyelitis, left ankle and foot; E11.621 Type 2 diabetes mellitus with foot ulcer; Z99.2 Dependence on renal dialysis; E11.65 Type 2 diabetes mellitus with hyperglycemia; E11.22 Type 2 diabetes mellitus with diabetic chronic kidney disease; E11.69 Type 2 diabetes mellitus with other specified complication; E11.51 Type 2 diabetes mellitus with diabetic peripheral angiopathy without gangrene; E11.42 Type 2 diabetes mellitus with diabetic polyneuropathy; Z88.1 Allergy status to other antibiotic agents; Z79.82 Long term (current) use of aspirin; Z79.899 Other long term (current) drug therapy; D63.8 Anemia in other chronic diseases classified elsewhere; B95.62 Methicillin resistant Staphylococcus aureus infection as the cause of diseases classified elsewhere; E78.5 Hyperlipidemia, unspecified; E21.1 Secondary hyperparathyroidism, not elsewhere classified; L97.529 Non-pressure chronic ulcer of other part of left foot with unspecified severity; F32.9 Major depressive disorder, single episode, unspecified; E87.5 Hyperkalemia; R62.7 Adult failure to thrive; Z89.432 Acquired absence of left foot; Z89.431 Acquired absence of right foot; Z79.84 Long term (current) use of oral hypoglycemic drugs
CPT/HCPCS: 36415; 71045-TC; 73630-TC; 73718-TC; 80048-TC; 80053-TC; 80061-TC; 80076-TC; 82550-TC; 82728-TC; 83540-TC; 83735-TC; 83970; 84100-TC; 84132-TC; 84155; 84165; 84443-TC; 84484-TC; 85025-TC; 85652-TC; 86140-TC; 86706; 86803; 87040-TC; 87081-TC; 87086-TC; 87340; 90935-TC; 93307-TC; A6403; C1751; G0378; J0610; J0696; J2405; J2916; J3490; J7030; J7040; J7050; J7060